=== PATIENT | male | born 1950 | race Caucasian/White ===

== ENCOUNTER 2016-05-18 04:03 | Emergency (ER) | payer OTHER ==
[2016-05-18] MEDS ORDERED: NS 1,000 ML IV ONE ×3 (04:07→06:46)
[2016-05-18] MEDS ORDERED: ONDANSETRON 4 MG/2 ML VIAL IVP ONE (04:07)
[2016-05-18] MEDS ORDERED: HYDROmorphONE/DILAUDID 1 MG/ML SYR ONE (04:09)
--- NOTE | 2016-05-18 04:14 | EDPHY ---
H & P Time Seen by Provider: 05/18/16 04:05 HPI/ROS: HPI The patient presents with severe left-sided upper quadrant abdominal pain which began about an hour prior to presentation. He awoke from sleep to use the bathroom and then had rapid onset of this sharp pain which has been constant ever since. He took OxyContin and Percocet at home without any improvement in his symptoms and thus comes into the emergency room. He has a longstanding history of pancreatitis thought to be related to pancreas divisum and has had prior pancreatic stents placed. Last was removed in February of 2016.. REVIEW OF SYSTEMS Constitutional: No fever, no chills. Eyes: No discharge. ENT: No sore throat. Cardiovascular: No chest pain, no palpitations. Respiratory: No cough, no shortness of breath. Gastrointestinal: See HPI Genitourinary: No hematuria. Musculoskeletal: No back pain. Skin: No rashes. Neurological: No headache. PMHx: Recurrent pancreatitis Soc Hx: Lives at home with his PHYSICAL General Appearance: Alert, no distress Eyes: Pupils equal and round no pallor or injection ENT, Mouth: Mucous membranes moist Respiratory: There are no retractions, lungs are clear to auscultation Cardiovascular: Regular rate and rhythm Gastrointestinal: Abdomen is soft with tenderness in the left upper quadrant Neurological: A&O, moves all extremities Skin: Warm and dry, no rashes Musculoskeletal: Neck is supple non tender Extremities: symmetrical, full range of motion Psychiatric: Patient is oriented X 3, there is no agitation Source: Patient Exam Limitations: No limitations - Personal History Tetanus Vaccine Date: 2010 - Medical/Surgical History Hx Asthma: Yes Hx Chronic Respiratory Disease: No Hx Diabetes: No Hx Cardiac Disease: No Hx Renal Disease: No Hx Cirrhosis: No Hx Alcoholism: No Hx HIV/AIDS: No Hx Splenectomy or Spleen Trauma: No Other PMH: pancreatits,L Shoulder surgery,Hernia repair,eye surgery, cholecystectomy - Social History Smoking Status: Never smoked Constitutional: Initial Vital Signs Temperature (C) 36.4 C 05/18/16 04:10 Heart Rate 51 L 05/18/16 04:10 Respiratory Rate 20 05/18/16 04:10 Blood Pressure 159/65 H 05/18/16 04:10 O2 Sat (%) 98 05/18/16 04:10 O2 Delivery Mode Nasal Cannula O2 (L/minute) 2 Allergies/Adverse Reactions: CATS Allergy (Mild, Uncoded 10/07/14 20:14) ASTHMA SX Home Medications: Medication Instructions Recorded Oxycodone HCl 05/18/16 Medical Decision Making Differential Diagnosis: This is a 66-year-old man with history of pancreas divisum with history of stents in place, no stent currently who presents from home with acute onset of severe left upper quadrant abdominal pain. Differential diagnosis includes pancreatitis, gastritis, colitis. In the emergency room, the patient was given Dilaudid 1 mg IV with complete resolution in his symptoms. He was also medicated with normal saline and Zofran. Labs were checked and revealed a markedly elevated lipase greater than 20,000. The patient was reassessed on several occasions and his abdominal exam was benign. He was offered admission to the hospital, however he would like to go home as he feels that his pain is better. He has had frequent pancreatitis and seems to know the course of his symptoms well, so I feel it is reasonable for him to go home. - Data Points Laboratory Results: Laboratory Results 05/18/16 04:55 05/18/16 04:55 05/18/16 05/18/16 04:55 04:55 WBC 11.73 10^3/uL H 10^3/uL (3.80-9.50) RBC 5.22 10^6/uL 10^6/uL (4.40-6.38) Hgb 16.4 g/dL g/dL (13.7-17.5) Hct 46.7 % % (40.0-51.0) MCV 89.5 fL fL (81.5-99.8) MCH 31.4 pg pg (27.9-34.1) MCHC 35.1 g/dL g/dL (32.4-36.7) RDW 12.6 % % (11.5-15.2) Plt Count 165 10^3/uL 10^3/uL (150-400) MPV 11.6 fL fL (8.7-11.7) Neut % (Auto) 53.8 % % (39.3-74.2) Lymph % (Auto) 33.8 % % (15.0-45.0) Camp % (Auto) 8.0 % % (4.5-13.0) Eos % (Auto) 3.6 % % (0.6-7.6) Baso % (Auto) 0.5 % % (0.3-1.7) Nucleat RBC Rel Count 0.0 % % (0.0-0.2) Absolute Neuts (auto) 6.31 10^3/uL 10^3/uL (1.70-6.50) Absolute Lymphs (auto) 3.96 10^3/uL H 10^3/uL (1.00-3.00) Absolute Monos (auto) 0.94 10^3/uL H 10^3/uL (0.30-0.80) Absolute Eos (auto) 0.42 10^3/uL H 10^3/uL (0.03-0.40) Absolute Basos (auto) 0.06 10^3/uL 10^3/uL (0.02-0.10) Absolute Nucleated RBC 0.00 10^3/uL 10^3/uL (0-0.01) Immature Gran % 0.3 % % (0.0-1.1) Immature Gran # 0.04 10^3/uL 10^3/uL (0.00-0.10) Sodium 139 mEq/L mEq/L (134-144) Potassium 4.1 mEq/L mEq/L (3.5-5.2) Chloride 105 mEq/L mEq/L (97-110) Carbon Dioxide 25 mEq/l mEq/l (22-31) Anion Gap 9 mEq/L mEq/L (8-16) BUN 20 mg/dL mg/dL (7-23) Creatinine 0.9 mg/dL mg/dL (0.7-1.3) Estimated GFR > 60 Glucose 151 mg/dL H mg/dL (70-100) Calcium 9.6 mg/dL mg/dL (8.5-10.4) Total Bilirubin 0.6 mg/dL mg/dL (0.1-1.4) Conjugated Bilirubin 0.4 mg/dL mg/dL (0.0-0.5) Unconjugated Bilirubin 0.2 mg/dL mg/dL (0.0-1.1) AST 29 IU/L IU/L (17-59) ALT 46 IU/L IU/L (21-72) Alkaline Phosphatase 85 IU/L IU/L (38-126) Total Protein 6.9 g/dL g/dL (6.3-8.2) Albumin 4.3 g/dL g/dL (3.5-5.0) Lipase > 28220.0 IU/L H IU/L (23-300) Medications Given: Discontinued Medications Hydromorphone HCl (Dilaudid) 1 mg IVP EDNOW ONE Stop: 05/18/16 04:16 Last Admin: 05/18/16 04:22 Dose: 1 mg Hydromorphone HCl (Dilaudid) 1 mg IVP EDNOW ONE Stop: 05/18/16 04:22 Last Admin: 05/18/16 04:22 Dose: Not Given Sodium Chloride (Ns) 1,000 mls @ 0 mls/hr IV ONCE ONE PRN Reason: Wide Open Stop: 05/18/16 04:08 Last Admin: 05/18/16 04:19 Dose: 1,000 mls Sodium Chloride (Ns) 1,000 mls @ 0 mls/hr IV ONCE ONE PRN Reason: Wide Open Stop: 05/18/16 06:06 Last Admin: 05/18/16 06:16 Dose: 1,000 mls Ondansetron HCl (Zofran) 4 mg IVP EDNOW ONE Stop: 05/18/16 04:08 Last Admin: 05/18/16 04:19 Dose: 4 mg Departure - Departure Disposition: Home, Routine, Self-Care Clinical Impression: Pancreatitis, acute Qualifiers: Pancreatitis type: other Acute pancreatitis complication: unspecified Qualified Code(s): K85.80 - Other acute pancreatitis without necrosis or infection Condition: Good Instructions: Pancreatitis (ED) Additional Instructions: Please maintain a clear diet until you are feeling better. Referrals: Kelsi Lauren MD [Primary Care Provider] - As per Instructions
[2016-05-18] MEDS ORDERED: HYDROmorphONE/DILAUDID 1 MG/ML SYR IVP ONE ×2 (04:15→04:21)
[2016-05-18 05:06] LABS: % IMMATURE GRANULYOCYTES 0.3 % (0.0-1.1); ABSOLUTE IMMATURE GRANULOCYTES 0.04 10^3/uL (0.00-0.10); ADD DIFF? NO; ADD MORPH? NO; ADD SCAN? NO; ATYPICAL LYMPHOCYTE FLAG 0 (0-99); FRAGMENT RBC FLAG 0 (0-99); HEMATOCRIT 46.7 % (40.0-51.0); HEMOGLOBIN 16.4 g/dL (13.7-17.5); LEFT SHIFT FLG 0 (0-99); LIPEMIA HEMOLYSIS FLAG 90 (0-99); MEAN CELL HEMOGLOBIN 31.4 pg (27.9-34.1); MEAN CELL HEMOGLOBIN CONCENTR. 35.1 g/dL (32.4-36.7); MEAN CELL VOLUME 89.5 fL (81.5-99.8); MEAN PLATELET VOLUME 11.6 fL (8.7-11.7); PLATELET CLUMPS FLAG 0 (0-99); PLATELET COUNT 165 10^3/uL (150-400); RED BLOOD CELL COUNT 5.22 10^6/uL (4.40-6.38); RED CELL DISTRIBUTION WIDTH 12.6 % (11.5-15.2)
[2016-05-18 05:19] LABS: ALANINE AMINOTRANSFERASE 46 IU/L (21-72); ALBUMIN 4.3 g/dL (3.5-5.0); ALKALINE PHOSPHATASE 85 IU/L (38-126); ANION GAP 9 mEq/L (8-16); ASPARTATE AMINOTRANSFERASE 29 IU/L (17-59); BILIRUBIN,TOTAL 0.6 mg/dL (0.1-1.4); BILIRUBIN-CONJUGATED 0.4 mg/dL (0.0-0.5); BILIRUBIN-UNCONJUGATED 0.2 mg/dL (0.0-1.1); CALCIUM 9.6 mg/dL (8.5-10.4); CARBON DIOXIDE 25 mEq/l (22-31); CHLORIDE 105 mEq/L (97-110); CREATININE 0.9 mg/dL (0.7-1.3); GLOMERULAR FILTRATION RATE > 60; GLUCOSE 151 mg/dL (70-100); POTASSIUM 4.1 mEq/L (3.5-5.2); SODIUM 139 mEq/L (134-144); TOTAL PROTEIN 6.9 g/dL (6.3-8.2)
[2016-05-18 05:24] VITALS: TEMP 97.9
[2016-05-18 08:06] VITALS: BP 107/58; PULSE 51; RESP 15; O2SAT 95
== END 2016-05-18 08:18 | disposition home or self-care (01) ==
DX: K85.80 Other acute pancreatitis without necrosis or infection (principal); J45.909 Unspecified asthma, uncomplicated; Z90.49 Acquired absence of other specified parts of digestive tract
CPT/HCPCS: 96374; J1170; J2405

== ENCOUNTER 2016-06-08 05:18 | Emergency (ER) | payer OTHER ==
[2016-06-08] MEDS ORDERED: NS 1,000 ML IV ONE ×3 (05:27→06:55)
--- NOTE | 2016-06-08 05:27 | EDPHY ---
H & P Stated Complaint: epigastric pain, similar to recent admission for pancreatitis HPI/ROS: HPI CHIEF COMPLAINT: Abdominal pain HISTORY OF PRESENT ILLNESS: This patient very pleasant 66-year-old male significant past medical history for chronic pancreatitis, pancreatic divisum, and did have a pancreatic stent however it is removed. He presents emergency room after he states that around 4:00 a.m. he started having some epigastric abdominal pain burning in nature consistent with his acute on chronic pancreatitis. He states that he came immediately to the emergency room as he tells me like to catch this soon. He tells me usually gets 1 mg IV Dilaudid and then a few bags of normal saline and then gets to go home. He has not had a fever has not been vomiting he has no chest pain or shortness of breath. The last time he was admitted was back in November. Currently describes his pain as 4/10 epigastric region. Past Medical History: Chronic pancreatitis, pancreatic divisum Past Surgical History: Pancreatic stents multiple Social History: denies daily use of drugs alcohol tobacco products Family History: noncontributory ROS REVIEW OF SYSTEMS: A comprehensive 10 point review of systems is otherwise negative aside from elements mentioned in the history of present illness. Exam Constitutional triage nursing summary reviewed, vital signs reviewed, awake/ alert. Eyes normal conjunctivae and sclera, EOMI, PERRLA. HENT normal inspection, atraumatic, moist mucus membranes, no epistaxis, neck supple/ no meningismus, no raccoon eyes. Respiratory clear to auscultation bilaterally, normal breath sounds, no respiratory distress, no wheezing. Cardiovascular rate normal, regular rhythm, no murmur, no edema, distal pulses normal. Gastrointestinal soft, mild tenderness palpation epigastric region, no rebound , no guarding, normal bowel sounds, no distension, no pulsatile mass. Genitourinary no CVA tenderness. Musculoskeletal no midline vertebral tenderness, full range of motion, no calf swelling, no tenderness of extremities, no meningismus, good pulses, neurovascularly intact. Skin pink, warm, & dry, no rash, skin atraumatic. Neurologic awake, alert and oriented x 3, AAOx3, moves all 4 extremities equally, motor intact, sensory intact, CN II-XII intact, normal cerebellar, normal vision, normal speech. Psychiatric normal mood/affect. Heme/Lymph/Immune no lymphadenopathy. Differential diagnosis includes but is not limited to and in no particular order : acute pancreatitis acute on chronic pancreatitis Bowel obstruction, appendicitis, gallbladder disease, diverticulitis, colitis, enteritis, perforated viscus, gastritis, GERD, esophagitis, urinary tract infection, pyelonephritis, kidney stones Medical Decision Making: The patient had an IV established obtain blood work, including lipase, will be hydrated aggressively with 2 L normal saline bolus, and he will also be given 4 mg IV Zofran and 1 mg IV Dilaudid will re-evaluate. Re-evaluation: 0656: re-evaluation at this time patient is resting comfortably no acute distress. Abdomen is soft. He is not vomiting. He has received 3 L of fluid here in the emergency room 1 mg Dilaudid. I did explain to him that his lipase is most likely over 20,000. And that he may want to be admitted however he has declined admission he wants to go home he tells me that his lungs had 3-4 L of IV fluids 1 mg Dilaudid he is not vomiting he is comfortable going home. He went home before with lipase over 20,000. He does understand he is 1 welcome to return any time if he has worsening abdominal pain, vomiting or does not feel well. Source: Patient - Personal History Current Tetanus/Diphtheria Vaccine: Yes Current Tetanus Diphtheria and Acellular Pertussis (TDAP): Yes Tetanus Vaccine Date: 2010 - Medical/Surgical History Hx Asthma: Yes Hx Chronic Respiratory Disease: No Hx Diabetes: No Hx Cardiac Disease: No Hx Renal Disease: No Hx Cirrhosis: No Hx Alcoholism: No Hx HIV/AIDS: No Hx Splenectomy or Spleen Trauma: No Other PMH: pancreatitis, L Shoulder surgery, Hernia repair, eye surgery, cholecystectomy - Social History Smoking Status: Never smoked Constitutional: Initial Vital Signs Temperature (C) 36.8 C 06/08/16 05:21 Heart Rate 53 L 06/08/16 05:21 Respiratory Rate 18 06/08/16 05:21 Blood Pressure 157/100 H 06/08/16 05:21 O2 Sat (%) 98 06/08/16 05:21 O2 Delivery Mode Room Air Allergies/Adverse Reactions: CATS Allergy (Mild, Uncoded 10/07/14 20:14) ASTHMA SX Home Medications: Medication Instructions Recorded Oxycodone HCl 5 mg PO BID #20 tablet 06/08/16 Medical Decision Making - Data Points Laboratory Results: Laboratory Results 06/08/16 05:35 06/08/16 05:35 06/08/16 06/08/16 06/08/16 05:35 05:35 05:35 WBC 7.73 10^3/uL 10^3/uL (3.80-9.50) RBC 5.70 10^6/uL 10^6/uL (4.40-6.38) Hgb 17.9 g/dL H g/dL (13.7-17.5) Hct 50.5 % % (40.0-51.0) MCV 88.6 fL fL (81.5-99.8) MCH 31.4 pg pg (27.9-34.1) MCHC 35.4 g/dL g/dL (32.4-36.7) RDW 12.6 % % (11.5-15.2) Plt Count 157 10^3/uL 10^3/uL (150-400) MPV 11.5 fL fL (8.7-11.7) Neut % (Auto) 61.2 % % (39.3-74.2) Lymph % (Auto) 26.1 % % (15.0-45.0) Burt % (Auto) 7.0 % % (4.5-13.0) Eos % (Auto) 4.9 % % (0.6-7.6) Baso % (Auto) 0.5 % % (0.3-1.7) Nucleat RBC Rel Count 0.0 % % (0.0-0.2) Absolute Neuts (auto) 4.73 10^3/uL 10^3/uL (1.70-6.50) Absolute Lymphs (auto) 2.02 10^3/uL 10^3/uL (1.00-3.00) Absolute Monos (auto) 0.54 10^3/uL 10^3/uL (0.30-0.80) Absolute Eos (auto) 0.38 10^3/uL 10^3/uL (0.03-0.40) Absolute Basos (auto) 0.04 10^3/uL 10^3/uL (0.02-0.10) Absolute Nucleated RBC 0.00 10^3/uL 10^3/uL (0-0.01) Immature Gran % 0.3 % % (0.0-1.1) Immature Gran # 0.02 10^3/uL 10^3/uL (0.00-0.10) PT 12.9 SEC SEC (12.0-15.0) INR 0.98 (0.83-1.16) APTT 28.1 SEC SEC (23.0-38.0) VBG Lactic Acid Sodium 143 mEq/L mEq/L (134-144) Potassium 4.7 mEq/L mEq/L (3.5-5.2) Chloride 106 mEq/L mEq/L (97-110) Carbon Dioxide 26 mEq/l mEq/l (22-31) Anion Gap 11 mEq/L mEq/L (8-16) BUN 18 mg/dL mg/dL (7-23) Creatinine 0.9 mg/dL mg/dL (0.7-1.3) Estimated GFR > 60 Glucose 111 mg/dL H mg/dL (70-100) Calcium 9.9 mg/dL mg/dL (8.5-10.4) Total Bilirubin 0.8 mg/dL mg/dL (0.1-1.4) Conjugated Bilirubin 0.4 mg/dL mg/dL (0.0-0.5) Unconjugated Bilirubin 0.4 mg/dL mg/dL (0.0-1.1) AST 32 IU/L IU/L (17-59) ALT 43 IU/L IU/L (21-72) Alkaline Phosphatase 97 IU/L IU/L (38-126) Total Protein 7.6 g/dL g/dL (6.3-8.2) Albumin 4.9 g/dL g/dL (3.5-5.0) Lipase Pending 06/08/16 05:35 WBC RBC Hgb Hct MCV MCH MCHC RDW Plt Count MPV Neut % (Auto) Lymph % (Auto) Burt % (Auto) Eos % (Auto) Baso % (Auto) Nucleat RBC Rel Count Absolute Neuts (auto) Absolute Lymphs (auto) Absolute Monos (auto) Absolute Eos (auto) Absolute Basos (auto) Absolute Nucleated RBC Immature Gran % Immature Gran # PT INR APTT VBG Lactic Acid 1.1 mmol/L mmol/L (0.7-2.1) Sodium Potassium Chloride Carbon Dioxide Anion Gap BUN Creatinine Estimated GFR Glucose Calcium Total Bilirubin Conjugated Bilirubin Unconjugated Bilirubin AST ALT Alkaline Phosphatase Total Protein Albumin Lipase Medications Given: Discontinued Medications Hydromorphone HCl (Dilaudid) 1 mg IVP EDNOW ONE Stop: 06/08/16 05:31 Last Admin: 06/08/16 06:06 Dose: 1 mg Sodium Chloride (Ns) 1,000 mls @ 0 mls/hr IV ONCE ONE PRN Reason: Wide Open Stop: 06/08/16 05:28 Last Admin: 06/08/16 05:40 Dose: 1,000 mls Sodium Chloride (Ns) 1,000 mls @ 0 mls/hr IV ONCE ONE PRN Reason: Wide Open Stop: 06/08/16 05:38 Last Admin: 06/08/16 05:44 Dose: 1,000 mls Departure - Departure Disposition: Home, Routine, Self-Care Clinical Impression: Abdominal pain Qualifiers: Abdominal location: epigastric Qualified Code(s): R10.13 - Epigastric pain Pancreatitis Qualifiers: Chronicity: acute Pancreatitis type: other Acute pancreatitis complication: unspecified Qualified Code(s): K85.80 - Other acute pancreatitis without necrosis or infection Condition: Good Instructions: Pancreatitis (ED), Acute Abdominal Pain (ED) Additional Instructions: 1. if you feel worse please return to the emergency room specifically if you have worsening abdominal pain fever vomiting. Referrals: Kelsi Lauren MD [Primary Care Provider] - As per Instructions Prescriptions: Oxycodone HCl 5 mg PO BID #20 tablet
[2016-06-08] MEDS ORDERED: ONDANSETRON 4 MG/2 ML VIAL IVP ONE (05:30)
[2016-06-08] MEDS ORDERED: HYDROmorphONE/DILAUDID 1 MG/ML SYR IVP ONE (05:30)
[2016-06-08 05:57] LABS: % IMMATURE GRANULYOCYTES 0.3 % (0.0-1.1); ABSOLUTE IMMATURE GRANULOCYTES 0.02 10^3/uL (0.00-0.10); ADD DIFF? NO; ADD MORPH? NO; ADD SCAN? NO; ATYPICAL LYMPHOCYTE FLAG 0 (0-99); FRAGMENT RBC FLAG 0 (0-99); HEMATOCRIT 50.5 % (40.0-51.0); HEMOGLOBIN 17.9 g/dL (13.7-17.5); LEFT SHIFT FLG 0 (0-99); LIPEMIA HEMOLYSIS FLAG 90 (0-99); MEAN CELL HEMOGLOBIN 31.4 pg (27.9-34.1); MEAN CELL HEMOGLOBIN CONCENTR. 35.4 g/dL (32.4-36.7); MEAN CELL VOLUME 88.6 fL (81.5-99.8); MEAN PLATELET VOLUME 11.5 fL (8.7-11.7); PLATELET CLUMPS FLAG 10 (0-99); PLATELET COUNT 157 10^3/uL (150-400); RED CELL DISTRIBUTION WIDTH 12.6 % (11.5-15.2)
[2016-06-08 06:03] LABS: INR 0.98 (0.83-1.16); PROTIME(PATIENT) 12.9 SEC (12.0-15.0)
[2016-06-08 06:04] LABS: APTT 28.1 SEC (23.0-38.0)
[2016-06-08 06:05] LABS: ALANINE AMINOTRANSFERASE 43 IU/L (21-72); ALBUMIN 4.9 g/dL (3.5-5.0); ALKALINE PHOSPHATASE 97 IU/L (38-126); ANION GAP 11 mEq/L (8-16); ASPARTATE AMINOTRANSFERASE 32 IU/L (17-59); BILIRUBIN,TOTAL 0.8 mg/dL (0.1-1.4); BILIRUBIN-CONJUGATED 0.4 mg/dL (0.0-0.5); BILIRUBIN-UNCONJUGATED 0.4 mg/dL (0.0-1.1); CALCIUM 9.9 mg/dL (8.5-10.4); CARBON DIOXIDE 26 mEq/l (22-31); CHLORIDE 106 mEq/L (97-110); CREATININE 0.9 mg/dL (0.7-1.3); GLOMERULAR FILTRATION RATE > 60; GLUCOSE 111 mg/dL (70-100); POTASSIUM 4.7 mEq/L (3.5-5.2); SODIUM 143 mEq/L (134-144); TOTAL PROTEIN 7.6 g/dL (6.3-8.2)
[2016-06-08 08:18] VITALS: BP 128/80; PULSE 78; RESP 18; TEMP 98.4; O2SAT 98
== END 2016-06-08 08:14 | disposition home or self-care (01) ==
DX: K85.80 Other acute pancreatitis without necrosis or infection (principal); J45.909 Unspecified asthma, uncomplicated; Z90.49 Acquired absence of other specified parts of digestive tract
CPT/HCPCS: 96374; J1170; J2405

== ENCOUNTER 2016-12-21 12:52 | Emergency (ER) | payer OTHER ==
[2016-12-21 13:07] VITALS: RESP 16; TEMP 97.7
--- NOTE | 2016-12-21 14:04 | CPEKG ---
Heart Rate: 42 RR Interval: 1429 P-R Interval: 236 QRSD Interval: 108 QT Interval: 464 QTC Interval: 388 P Greer: 70 QRS Greer: 43 T Wave Greer: 39 EKG Severity - ABNORMAL ECG - EKG Impression: SINUS BRADYCARDIA EKG Impression: FIRST DEGREE AV BLOCK EKG Impression: INCOMPLETE RIGHT BUNDLE BRANCH BLOCK EKG Impression: PROBABLE LEFT VENTRICULAR HYPERTROPHY EKG Impression: ANTERIOR ST ELEVATION, PROBABLY DUE TO LVH Electronically Signed By: Cristobal Hector 21-Dec-2016 15:09:33
--- NOTE | 2016-12-21 14:46 | EDPHY ---
H & P Time Seen by Provider: 12/21/16 14:29 HPI/ROS: Chief complaint. Ankle swelling, shortness of breath HPI. 66-year-old presents to the emergency department with complaint of 4 days of facial swelling, swollen hands and feet. He just returned last night from a bike trip to [place]. He had no symptoms during 700 mild also biking [place] but on the last day of the trip in [place] E developed the above symptoms. The swelling seems to be slowly going down though still not normal in both ankles in particular still swollen. They feel tight. He was slightly ill over the trip having a sore throat but no fever. He has had slight shortness of breath since last night though he has had this before when he returns home from a trip. He does have slight tightness in his chest that seems to be worse with deep breathing but not with exertion. No similar issues previously other than the slight shortness of breath. No history heart or lung problems other than pneumonia child and heart murmur as a child. ROS Constitutional. no fever/chills, no weakness Eyes. no problems with vision ENT. Slight sore throat Cardiovascular. Tightness in chest Respiratory. Shortness of breath but no cough Abdominal. no abdominal pain, no nausea/vomiting, no diarrhea . no problems urinating MS. swelling to hands and feet as well as face Skin. no rash Lymph. no swollen glands Neuro. no headache, no dizziness, no difficulty walking or with speech Past Medical/Surgical History: Pancreatitis with cholecystectomy and stent. Stent was placed in September 2016. Shoulder surgery, hernia repair, eye surgery. Social History: Single, nonsmoker, alcohol Smoking Status: Never smoked Physical Exam: General Appearance: Alert well-developed male mild distress vital signs significant for initial blood pressure 199/93 Eyes: Pupils equal and round no pallor or injection. ENT, Mouth: Mucous membranes are moist. Respiratory: There are no retractions, lungs are clear to auscultation. Cardiovascular: Regular rate and rhythm. Gastrointestinal: Abdomen is soft and nontender, no masses, bowel sounds normal. Neurological: Awake and alert, sensory and motor exams grossly normal. Skin: Warm and dry, no rashes. Musculoskeletal: Neck is supple nontender. Extremities 2+ edema to both ankles to the mid calf Psychiatric: Patient is oriented X 3, there is no agitation. Constitutional: Initial Vital Signs Temperature (C) 36.5 C 12/21/16 13:03 Heart Rate 49 L 12/21/16 13:03 Respiratory Rate 16 12/21/16 13:03 Blood Pressure 199/93 H 12/21/16 13:03 O2 Sat (%) 96 12/21/16 13:03 O2 Delivery Mode Room Air Allergies/Adverse Reactions: CATS Allergy (Mild, Uncoded 10/07/14 20:14) ASTHMA SX Home Medications: Medication Instructions Recorded NK [No Known Home Meds] 12/21/16 Medical Decision Making - Diagnostics EKG Interpretation: EKG interpreted by me shows sinus bradycardia. There is first-degree AV block. Incomplete right bundle branch block. LVH by voltage criteria. Slight ST elevation anteriorly likely due to LVH. No arrhythmia. The rate is 42 No previous EKG in our system for comparison Imaging Results: Imaging Impressions Chest X-Ray 12/21/16 14:47 Impression: 1. Clear lungs. No pneumonia. 2. Trace bilateral pleural effusions versus pleural parenchymal scarring. Extremity Venous Study 12/21/16 15:08 IMPRESSION: Normal bilateral lower extremity duplex venous Doppler. Findings and recommendations discussed with MIRZA HECTOR at 1601 hour, 2016. Final report concurs with initial preliminary interpretation. Chest/Thorax CTA 12/21/16 16:11 Impression: 1. No pulmonary embolism. 2. No pneumonia. Findings and recommendations discussed with Mirza Hector M.D., at 1702 hours , on December 21, 2016. Final report concurs with initial preliminary interpretation. E:amm Chest x-ray interpreted by me shows no evidence of pneumonia or CHF. There is trace bilateral pleural effusions. Bilateral Doppler ultrasound of the extremities is normal without evidence of DVT this is reviewed by me and discussed with Dr. Ramirez Procedures: IV normal saline, monitor ED Course/Re-evaluation: Re-evaluation 5:20 p.m.. Patient feels well. He tells me he feels so well that if he had not had concerned about swelling from the other day he would gone out for a bike ride today. The patient and I discussed imaging lab results. We discussed treatment plan including criteria for return importance of follow-up further evaluation. He expresses understanding and agreement the patient has a follow-up appointment at and she has tomorrow and we will give him copies of his labs and EKG to take with him to his appointment for evaluation of his pancreas and gallbladder tomorrow. Differential Diagnosis: I considered DVT, PE, acute coronary syndrome, congestive heart failure, allergic reaction from the other day causing swelling. There is no evidence for acute findings today - Data Points Laboratory Results: Laboratory Results 12/21/16 14:00 12/21/16 14:00 12/21/16 12/21/16 12/21/16 14:00 14:00 14:00 WBC 4.33 10^3/uL 10^3/uL (3.80-9.50) RBC 4.76 10^6/uL 10^6/uL (4.40-6.38) Hgb 14.4 g/dL g/dL (13.7-17.5) Hct 42.0 % % (40.0-51.0) MCV 88.2 fL fL (81.5-99.8) MCH 30.3 pg pg (27.9-34.1) MCHC 34.3 g/dL g/dL (32.4-36.7) RDW 12.9 % % (11.5-15.2) Plt Count 150 10^3/uL 10^3/uL (150-400) MPV 11.5 fL fL (8.7-11.7) Neut % (Auto) 51.2 % % (39.3-74.2) Lymph % (Auto) 34.9 % % (15.0-45.0) Rankin % (Auto) 9.5 % % (4.5-13.0) Eos % (Auto) 3.5 % % (0.6-7.6) Baso % (Auto) 0.7 % % (0.3-1.7) Nucleat RBC Rel Count 0.0 % % (0.0-0.2) Absolute Neuts (auto) 2.22 10^3/uL 10^3/uL (1.70-6.50) Absolute Lymphs (auto) 1.51 10^3/uL 10^3/uL (1.00-3.00) Absolute Monos (auto) 0.41 10^3/uL 10^3/uL (0.30-0.80) Absolute Eos (auto) 0.15 10^3/uL 10^3/uL (0.03-0.40) Absolute Basos (auto) 0.03 10^3/uL 10^3/uL (0.02-0.10) Absolute Nucleated RBC 0.00 10^3/uL 10^3/uL (0-0.01) Immature Gran % 0.2 % % (0.0-1.1) Immature Gran # 0.01 10^3/uL 10^3/uL (0.00-0.10) PT 13.8 SEC SEC (12.0-15.0) INR 1.07 (0.83-1.16) D-Dimer 0.58 ug/mLFEU H ug/mLFEU (0.00-0.50) Sodium 140 mEq/L mEq/L (134-144) Potassium 3.1 mEq/L L mEq/L (3.5-5.2) Chloride 101 mEq/L mEq/L (97-110) Carbon Dioxide 31 mEq/l mEq/l (22-31) Anion Gap 8 mEq/L mEq/L (8-16) BUN 13 mg/dL mg/dL (7-23) Creatinine 0.8 mg/dL mg/dL (0.7-1.3) Estimated GFR > 60 Glucose 73 mg/dL mg/dL (70-100) Calcium 9.2 mg/dL mg/dL (8.5-10.4) Total Bilirubin 0.6 mg/dL mg/dL (0.1-1.4) Conjugated Bilirubin 0.2 mg/dL mg/dL (0.0-0.5) Unconjugated Bilirubin 0.4 mg/dL mg/dL (0.0-1.1) AST 34 IU/L IU/L (17-59) ALT 70 IU/L IU/L (21-72) Alkaline Phosphatase 50 IU/L IU/L (38-126) Troponin I < 0.012 ng/mL ng/mL (0.000-0.034) NT-Pro-B Natriuret Pep 304 pg/mL H pg/mL (0-125) Total Protein 6.5 g/dL g/dL (6.3-8.2) Albumin 3.8 g/dL g/dL (3.5-5.0) Lipase 165 IU/L IU/L (23-300) Medications Given: Discontinued Medications Magnesium Sulfate/Dextrose (Magnesium Sulf 1 Gm (Premix)) 100 mls @ 100 mls/hr IV EDNOW ONE Stop: 12/21/16 16:18 Last Admin: 12/21/16 16:10 Dose: 100 mls Potassium Chloride (Klor-Con) 40 meq PO ONCE ONE Stop: 12/21/16 15:20 Last Admin: 12/21/16 16:09 Dose: 40 meq Departure - Departure Disposition: Home, Routine, Self-Care Clinical Impression: Edema Qualifiers: Edema type: generalized Qualified Code(s): R60.1 - Generalized edema Condition: Good Instructions: Edema (ED) Additional Instructions: Easy activity the next 1-2 days. Return for worsening symptoms including chest discomfort or trouble breathing. Keep her follow-up appointments tomorrow and on Wednesday. Referrals: Kelsi Lauren MD [Primary Care Provider] - 1 day, if not improved
[2016-12-21 14:55] LABS: % IMMATURE GRANULYOCYTES 0.2 % (0.0-1.1); ABSOLUTE IMMATURE GRANULOCYTES 0.01 10^3/uL (0.00-0.10); ADD DIFF? NO; ADD MORPH? NO; ADD SCAN? NO; ATYPICAL LYMPHOCYTE FLAG 10 (0-99); FRAGMENT RBC FLAG 0 (0-99); HEMOGLOBIN 14.4 g/dL (13.7-17.5); LEFT SHIFT FLG 0 (0-99); LIPEMIA HEMOLYSIS FLAG 90 (0-99); MEAN CELL HEMOGLOBIN 30.3 pg (27.9-34.1); MEAN CELL HEMOGLOBIN CONCENTR. 34.3 g/dL (32.4-36.7); MEAN CELL VOLUME 88.2 fL (81.5-99.8); MEAN PLATELET VOLUME 11.5 fL (8.7-11.7); PLATELET CLUMPS FLAG 10 (0-99); PLATELET COUNT 150 10^3/uL (150-400); RED BLOOD CELL COUNT 4.76 10^6/uL (4.40-6.38); RED CELL DISTRIBUTION WIDTH 12.9 % (11.5-15.2)
[2016-12-21 15:00] LABS: ALANINE AMINOTRANSFERASE 70 IU/L (21-72); ALBUMIN 3.8 g/dL (3.5-5.0); ALKALINE PHOSPHATASE 50 IU/L (38-126); ANION GAP 8 mEq/L (8-16); ASPARTATE AMINOTRANSFERASE 34 IU/L (17-59); BILIRUBIN,TOTAL 0.6 mg/dL (0.1-1.4); BILIRUBIN-CONJUGATED 0.2 mg/dL (0.0-0.5); BILIRUBIN-UNCONJUGATED 0.4 mg/dL (0.0-1.1); CALCIUM 9.2 mg/dL (8.5-10.4); CARBON DIOXIDE 31 mEq/l (22-31); CHLORIDE 101 mEq/L (97-110); CREATININE 0.8 mg/dL (0.7-1.3); GLOMERULAR FILTRATION RATE > 60; GLUCOSE 73 mg/dL (70-100); POTASSIUM 3.1 mEq/L (3.5-5.2); SODIUM 140 mEq/L (134-144); TOTAL PROTEIN 6.5 g/dL (6.3-8.2)
[2016-12-21 15:11] LABS: TROPONIN I < 0.012 ng/mL (0.000-0.034)
[2016-12-21] MEDS ORDERED: MAGNESIUM SULF 1 GM/DEXTROSE 100 ML IV ONE (15:19)
[2016-12-21] MEDS ORDERED: POTASSIUM CL 20 MEQ TAB PO ONE (15:19)
[2016-12-21 15:28] LABS: INR 1.07 (0.83-1.16); PROTIME(PATIENT) 13.8 SEC (12.0-15.0)
[2016-12-21 16:23] VITALS: BP 170/92; PULSE 65; O2SAT 94
[2016-12-21] MEDS ORDERED: IOPAMIDOL (ISOVUE 370) 100 ML BTL IV ONE (16:26)
== END 2016-12-21 17:39 | disposition home or self-care (01) ==
DX: R60.1 Generalized edema (principal)
CPT/HCPCS: 96374; J3475; Q9967

== ENCOUNTER → 2016-12-31 | Outpatient (CLI) | payer OTHER | LOC: BMCIMAGING 08:12 | PROVIDERS: ATTEND Family Medicine | DX: R16.0 Hepatomegaly, not elsewhere classified (principal); K76.0 Fatty (change of) liver, not elsewhere classified; N28.1 Cyst of kidney, acquired; I70.0 Atherosclerosis of aorta; Z90.49 Acquired absence of other specified parts of digestive tract; Z96.89 Presence of other specified functional implants ==

== ENCOUNTER → 2017-03-02 | Outpatient (CLI) | payer OTHER ==
[~2017-03-02] MED LIST: GADOBUTROL 10 ML VIAL IVP ONE
== END ==
LOC: FIMAGING 18:30
PROVIDERS: ATTEND Internal Medicine Gastroenterology
DX: R93.2 Abnormal findings on diagnostic imaging of liver and biliary tract (principal)
CPT/HCPCS: 74183; A9585

== ENCOUNTER 2018-03-04 15:19 | Observation (INO) | payer OTHER ==
--- NOTE | 2018-03-04 15:23 | EDPHY ---
HPI/HX/ROS/PE/MDM Narrative: CHIEF COMPLAINT: Abnormal EKG HPI: The patient is a 68 y/o male with a history of a pancreatic stent placement ( today), recurrent pancreatitis, and a cholecystectomy complaining of an abnormal EKG today. He had an his annual physical with his PCP today after the stent placement in [place]. During the visit today he mentioned a several month history of right-sided chest pain and shortness of breath episodes. His PCP then ordered an EKG which was abnormal, so he sent him to this emergency department. Currently the patient is unsure if he is having chest pain or if the pain is due to his pancreatitis. No fever, headache, abdominal pain, urinary or bowel complaints, numbness, paresthesias. The chest pain and shortness of breath has been intermittent and occurs primarily while working out and sometimes while sitting on the couch. He initially develops an abnormal sensation in the right side of his chest followed by a "constricted breath". For the the shortness of breath, he takes Albuterol which doesn't alleviate his symptoms. He then develops a "mind haze" and "tunnel vision". These episodes last for around 10-15 minutes. His last cardiac stress test was 20 years ago and he has seen a continuous pillowcase cutter at [facility]. The patient was told that he has a calcified LAD per an old CT. REVIEW OF SYSTEMS: Aside from elements discussed in the HPI, a comprehensive 10 system review of systems is otherwise negative. PMH: Pancreatitis (due to "genetic kink"), pancreatic stent, cholecystectomy, left shoulder surgery, hernia repair, eye surgery SOCIAL HISTORY: Lives in [place], at bedside, retired PHYSICAL EXAM: General: Patient is alert, in no acute distress. ENT: Eyes are normal to inspection. ENT inspection normal. Neck: Normal inspection. Full range of motion. Respiratory: No respiratory distress. Breath sounds normal bilaterally. Cardiovascular: Regular rate and rhythm. Strong peripheral pulses. Normal cap refill. Abdomen: The abdomen is nontender to palpation. There are no peritoneal signs. There are normal bowel sounds. Back: Normal to inspection. No tenderness to palpation. Skin: Normal color. No rash. Warm and dry. Extremities: Normal appearance. Full range of motion. Neuro: Oriented x3. Normal motor function. Normal sensory function. ED Course: 1536: EKG was ordered and interpreted by myself. Please see [facility] system for official reading. I reviewed patient's old EKG from November which is similar to the EKG today. 1612: Patient has a negative POC troponin and a negative chest x-ray. 1636: I spoke with the PA from [facility] regarding this patient; this patient will need to be admitted for further evaluation and observation. 1644: I consulted with the hospitalist service, Dr. Snow accepts admission of this patient. 1700: Reassessed patient and discussed plan for admission which he is comfortable with it. MDM: This patient presents with episodic chest pain with exertion, concerning for flow-limiting CAD/angina. I think PE is much less likely, and as patient underwent a surgical procedure earlier today, I do not think a d-dimer would be an accurate test. He will be admitted to medicine for cardiology evaluation and troponin rule out. - Data Points Imaging Results: Imaging Impressions Chest X-Ray 03/04/18 15:25 Impression: Normal. Imaging: I viewed and interpreted images myself Laboratory Results: Laboratory Results 03/04/18 15:44 03/04/18 15:44 03/04/18 03/04/18 03/04/18 15:52 15:44 15:44 WBC 7.19 10^3/uL 10^3/uL (3.80-9.50) RBC 4.97 10^6/uL 10^6/uL (4.40-6.38) Hgb 15.4 g/dL g/dL (13.7-17.5) Hct 43.6 % % (40.0-51.0) MCV 87.7 fL fL (81.5-99.8) MCH 31.0 pg pg (27.9-34.1) MCHC 35.3 g/dL g/dL (32.4-36.7) RDW 12.7 % % (11.5-15.2) Plt Count 142 10^3/uL L 10^3/uL (150-400) MPV 11.2 fL fL (8.7-11.7) Neut % (Auto) 88.3 % H % (39.3-74.2) Lymph % (Auto) 9.6 % L % (15.0-45.0) [place] % (Auto) 1.5 % L % (4.5-13.0) Eos % (Auto) 0.0 % L % (0.6-7.6) Baso % (Auto) 0.3 % % (0.3-1.7) Nucleat RBC Rel Count 0.0 % % (0.0-0.2) Absolute Neuts (auto) 6.35 10^3/uL 10^3/uL (1.70-6.50) Absolute Lymphs (auto) 0.69 10^3/uL L 10^3/uL (1.00-3.00) Absolute Monos (auto) 0.11 10^3/uL L 10^3/uL (0.30-0.80) Absolute Eos (auto) 0.00 10^3/uL L 10^3/uL (0.03-0.40) Absolute Basos (auto) 0.02 10^3/uL 10^3/uL (0.02-0.10) Absolute Nucleated RBC 0.00 10^3/uL 10^3/uL (0-0.01) Immature Gran % 0.3 % % (0.0-1.1) Immature Gran # 0.02 10^3/uL 10^3/uL (0.00-0.10) Sodium 141 mEq/L mEq/L (135-145) Potassium 4.5 mEq/L mEq/L (3.5-5.2) Chloride 105 mEq/L mEq/L (97-110) Carbon Dioxide 29 mEq/l mEq/l (22-31) Anion Gap 7 mEq/L mEq/L (6-14) BUN 15 mg/dL mg/dL (7-23) Creatinine 0.9 mg/dL mg/dL (0.7-1.3) Estimated GFR > 60 Glucose 124 mg/dL H mg/dL (70-100) Calcium 9.3 mg/dL mg/dL (8.5-10.4) Total Bilirubin 0.6 mg/dL mg/dL (0.1-1.4) Conjugated Bilirubin 0.2 mg/dL mg/dL (0.0-0.5) Unconjugated Bilirubin 0.4 mg/dL mg/dL (0.0-1.1) AST 28 IU/L IU/L (17-59) ALT 34 IU/L IU/L (21-72) Alkaline Phosphatase 48 IU/L IU/L (38-126) POC Troponin I 0.00 ng/mL ng/mL (0.00-0.08) Total Protein 6.9 g/dL g/dL (6.3-8.2) Albumin 4.5 g/dL g/dL (3.5-5.0) Lipase 79 IU/L IU/L (23-300) Point of Care Test Results: Chemistry 03/04/18 15:52 POC Troponin I 0.00 ng/mL ng/mL (0.00-0.08) General Time Seen by Provider: 03/04/18 15:21 Initial Vital Signs: Initial Vital Signs Temperature (C) 36.3 C 03/04/18 15:25 Heart Rate 67 03/04/18 15:25 Respiratory Rate 18 03/04/18 15:25 Blood Pressure 159/100 H 03/04/18 15:25 O2 Sat (%) 97 03/04/18 15:25 O2 Delivery Mode Room Air Allergies/Adverse Reactions: CATS Allergy (Mild, Uncoded 03/04/18 15:24) ASTHMA SX Home Medications: Medication Instructions Recorded Albuterol [Proventil Inhaler HFA 2 puffs IH BID PRN 03/04/18 (*)] Ascorbic Acid [Vitamin C 250 mg 250 mg PO DAILY 03/04/18 (*)] Cholecalciferol Vit D3 [Vitamin D3 1,000 units PO DAILY 03/04/18 (*)] Glucosamine Sulfate [Glucosamine 500 mg PO DAILY 03/04/18 Sulfate 500 MG (*)] Herbals/Supplements -Info Only 1 ea PO DAILY 03/04/18 Departure - Departure Disposition: [facility] Inpatient Acute Clinical Impression: Shortness of breath Chest pain Qualifiers: Chest pain type: other chest pain Qualified Code(s): R07.89 - Other chest pain Condition: Fair Report Scribed for: Prince Gomez Report Scribed by: Mi Torres Date of Report: 03/04/18 Time of Report: 15:24 Physician Review and Approval Statement: Portions of this note were transcribed by an ED scribe. I personally performed the history, physical exam, and medical decision making; and confirm the accuracy of the information in the transcribed note.
[2018-03-04 16:06] LABS: PLATELET COUNT 142 10^3/uL (150-400)
--- NOTE | 2018-03-04 18:19 | PDGENHP ---
History and Physical - Chief Complaint Right sided chest pain - History of Present Illness 68 y/o male presents after receiving a pancreatic stent in [place] today and visiting his PCP; performing an EKG that was abnormal. The pt reports these symptoms began years ago but have become more frequent and noticeable within the last year. It initially starts as the inability to catch his breath and after breathing deeply 20 times, he notices the right side chest pain. The pain does not radiate. He acknowledges he doesn't pay much attention to what is going on when he experiences the sensation that he can't breath because he is focused on "not dying." Apparently, 20 years ago after testing, he was told he was in the "high bracket" of cardiac calcium calcification. Nothing alleviates the chest pain and nothing aggravates it. The onset is random. He is an avid cyclist, normally going 30-100 miles rides but has noticed a decrease in distance d/t his breathing and activity intolerance. He denies current chest pain or SOB. Past Medical/Surgical History 1. Pancreatic stent placement (today) 2. Pancreatitis 3. Cholecystectomy 4. L shoulder surgery 5. Hernia Repair Social 1. Denies tobacco or illicit drug use. Has been sober for 5 years. Would like to try CBD. 2. Avid cyclist 3. Lives in [place] with his 4. Retired - worked in construction/computer programming Vital Signs 177/103 77 HR 17 Respirations 36.2c 94% RA History Information - Allergies/Home Medication List Allergies/Adverse Reactions: CATS Allergy (Mild, Uncoded 03/04/18 15:24) ASTHMA SX Home Medications: Albuterol [Proventil Inhaler HFA (*)] 2 puffs IH BID PRN 03/04/18 [Last Taken ] Ascorbic Acid [Vitamin C 250 mg (*)] 250 mg PO DAILY 03/04/18 [Last Taken Unknown] Cholecalciferol Vit D3 [Vitamin D3 (*)] 1,000 units PO DAILY 03/04/18 [Last Taken Unknown] Glucosamine Sulfate [Glucosamine Sulfate 500 MG (*)] 500 mg PO DAILY 03/04/18 [ Last Taken Unknown] Herbals/Supplements -Info Only 1 ea PO DAILY 03/04/18 [Last Taken Unknown] I have personally reviewed and updated: family history, medical history, social history, surgical history Past Medical History: See HPI List - Surgical History Additional surgical history: See HPI List - Family History Positive for: CAD, hypertension Additional family history: Mother and father with CAD. Brother heart disease - thinks he had a triple bypass - Social History Smoking Status: Never smoked Alcohol Use: Sober Drug Use: None Review of Systems Review of Systems: ROS: 10pt was reviewed & negative except for what was stated in HPI & below Constitutional: Reports: no symptoms EENMT: Reports: no symptoms Cardiac: Reports: chest pain, lightheadedness Respiratory: Reports: shortness of breath Gastrointestinal: Reports: no symptoms Genitourinary: Reports: no symptoms Muscolosketal: Reports: no symptoms Skin: Reports: no symptoms Neurological: Reports: headache Hematologic/Lymphatic: Reports: no symptoms Immunologic/Allergy: Reports: other (See allergy list) Physical Exam Physical Exam: Lab data and imaging reviewed EKG: SR with 1st degree conduction block Trop: 0.00 Temp Pulse Resp BP Pulse Ox 36.3 C 65 18 157/96 H 95 03/04/18 15:25 03/04/18 16:00 03/04/18 16:00 03/04/18 16:00 03/04/18 16:00 Constitutional: no apparent distress, appears nourished, not in pain Eyes: PERRL, anicteric sclera, EOMI Ears, Nose, Mouth, Throat: moist mucous membranes, hearing normal, ears appear normal, no oral mucosal ulcers Cardiovascular: regular rate and rhythym, no murmur, rub, or gallop, No edema Peripheral Pulses: 2+: dorsalis-pedis (R) (Radial 2+), dorsalis-pedis (L) ( Radial 2+) Respiratory: no respiratory distress, no rales or rhonchi, clear to auscultation Gastrointestinal: normoactive bowel sounds, soft, non-tender abdomen, no palpable masses Genitourinary: no bladder fullness, no bladder tenderness Skin: warm, normal color, no rashes or abrasions, no fluctuance, no induration, No mottled Musculoskeletal: full muscle strength, no muscle tenderness, normal joint ROM, no joint effusions Neurologic: AAOx3, sensation intact bilaterally, CN II-XII Intact Psychiatric: interacting appropriately, not anxious, not encephalopathic, thought process linear Lymph, Heme, Immunologic: no cervical LAD, no supraclavicular LAD Lab Data & Imaging Review 03/04/18 15:44 03/04/18 15:44 WBC 7.19 10^3/uL (3.80-9.50) 03/04/18 15:44 RBC 4.97 10^6/uL (4.40-6.38) 03/04/18 15:44 Hgb 15.4 g/dL (13.7-17.5) 03/04/18 15:44 Hct 43.6 % (40.0-51.0) 03/04/18 15:44 MCV 87.7 fL (81.5-99.8) 03/04/18 15:44 MCH 31.0 pg (27.9-34.1) 03/04/18 15:44 MCHC 35.3 g/dL (32.4-36.7) 03/04/18 15:44 RDW 12.7 % (11.5-15.2) 03/04/18 15:44 Plt Count 142 10^3/uL (150-400) L 03/04/18 15:44 MPV 11.2 fL (8.7-11.7) 03/04/18 15:44 Neut % (Auto) 88.3 % (39.3-74.2) H 03/04/18 15:44 Lymph % (Auto) 9.6 % (15.0-45.0) L 03/04/18 15:44 [place] % (Auto) 1.5 % (4.5-13.0) L 03/04/18 15:44 Eos % (Auto) 0.0 % (0.6-7.6) L 03/04/18 15:44 Baso % (Auto) 0.3 % (0.3-1.7) 03/04/18 15:44 Nucleat RBC Rel Count 0.0 % (0.0-0.2) 03/04/18 15:44 Absolute Neuts (auto) 6.35 10^3/uL (1.70-6.50) 03/04/18 15:44 Absolute Lymphs (auto) 0.69 10^3/uL (1.00-3.00) L 03/04/18 15:44 Absolute Monos (auto) 0.11 10^3/uL (0.30-0.80) L 03/04/18 15:44 Absolute Eos (auto) 0.00 10^3/uL (0.03-0.40) L 03/04/18 15:44 Absolute Basos (auto) 0.02 10^3/uL (0.02-0.10) 03/04/18 15:44 Absolute Nucleated RBC 0.00 10^3/uL (0-0.01) 03/04/18 15:44 Immature Gran % 0.3 % (0.0-1.1) 03/04/18 15:44 Immature Gran # 0.02 10^3/uL (0.00-0.10) 03/04/18 15:44 Sodium 141 mEq/L (135-145) 03/04/18 15:44 Potassium 4.5 mEq/L (3.5-5.2) 03/04/18 15:44 Chloride 105 mEq/L (97-110) 03/04/18 15:44 Carbon Dioxide 29 mEq/l (22-31) 03/04/18 15:44 Anion Gap 7 mEq/L (6-14) 03/04/18 15:44 BUN 15 mg/dL (7-23) 03/04/18 15:44 Creatinine 0.9 mg/dL (0.7-1.3) 03/04/18 15:44 Estimated GFR > 60 03/04/18 15:44 Glucose 124 mg/dL (70-100) H 03/04/18 15:44 Calcium 9.3 mg/dL (8.5-10.4) 03/04/18 15:44 Total Bilirubin 0.6 mg/dL (0.1-1.4) 03/04/18 15:44 Conjugated Bilirubin 0.2 mg/dL (0.0-0.5) 03/04/18 15:44 Unconjugated Bilirubin 0.4 mg/dL (0.0-1.1) 03/04/18 15:44 AST 28 IU/L (17-59) 03/04/18 15:44 ALT 34 IU/L (21-72) 03/04/18 15:44 Alkaline Phosphatase 48 IU/L (38-126) 03/04/18 15:44 POC Troponin I 0.00 ng/mL (0.00-0.08) 03/04/18 15:52 Total Protein 6.9 g/dL (6.3-8.2) 03/04/18 15:44 Albumin 4.5 g/dL (3.5-5.0) 03/04/18 15:44 Lipase 79 IU/L (23-300) 03/04/18 15:44 Assessment & Plan Plan: 1. Chest pain: strong family history of heart disease as well as gender and age of pt indicate a correlation of CAD -Consult cards; Kacie POOLE, from [facility], was at bedside with pt discussing options. Pt was given the option of stress test vs cath; pt prefers cath. Kacie discussed with pt's case, will cath tomorrow -Cardiac diet, NPO at midnight -Cont tele monitoring -Cycle trops; first trop negative -Cycle EKGs -Lipid panel tomorrow -Nitroglycerin PRN -He reports muscle cramping and aches while on atorvastatin ~ 15 years ago 2. Shortness of breath: possibly symptomatic undiagnosed, untreated CAD -See above -May continue albuterol PRN 3. Hypertension: reports his BP normally is 140/100 or below -Amlodipine PO one time Diet: Cardiac, NPO at midnight tonight VTE ppx: SCDs Code: Full Dispo: Admit to obs
[2018-03-04] MEDS ORDERED: ACETAMINOPHEN 325 MG TAB PO PRN (18:47)
[2018-03-04] MEDS ORDERED: ONDANSETRON DISINTEGRATING 4 MG TAB PO PRN (18:47)
[2018-03-04] MEDS ORDERED: ONDANSETRON 4 MG/2 ML VIAL IVP PRN (18:47)
[2018-03-04] MEDS ORDERED: NITROGLYCERIN 0.4 MG BTL SL PRN (18:57)
[2018-03-04] MEDS ORDERED: TEMAZEPAM 15 MG CAP PO PRN (18:57)
[2018-03-04] MEDS ORDERED: ALBUTEROL 60 PUFFS/8 GM MDI IH PRN (19:02)
[2018-03-04] MEDS ORDERED: amLODIPine BESYLATE 5 MG TAB PO ONE (19:15)
--- NOTE | 2018-03-04 19:30 | HOSPPROG ---
Hospitalist Progress Note Assessment/Plan: I have seen and examined the patie. Agree w plan as outlined. angiogram in AM Objective: Vital Signs Temp Pulse Resp BP Pulse Ox 36.2 C 77 17 177/103 H 94 03/04/18 18:37 03/04/18 18:37 03/04/18 18:37 03/04/18 18:37 03/04/18 18:37 ICD10 Worksheet Patient Problems: Problems Problem Status Onset Chest pain Acute Shortness of breath Acute Abdominal pain of multiple sites Acute Pancreatitis Acute
--- NOTE | 2018-03-04 22:40 | CPEKG ---
Test Reason : OPEN Blood Pressure : / mmHG Vent. Rate : 060 BPM Atrial Rate : 060 BPM P-R Int : 240 ms QRS Dur : 107 ms QT Int : 419 ms P-R-T Axes : 074 021 046 degrees QTc Int : 419 ms Sinus rhythm Prolonged MN interval Left atrial enlargement Left ventricular hypertrophy Lateral infarct, acute (LAD) Anterior infarct, age indeterminate Confirmed by Prince Gomez ([id number]) on 03/04/2018 10:39:53 PM Referred By: Confirmed By:Prince Gomez
[2018-03-05 04:28] LABS: PLATELET COUNT 129 10^3/uL (150-400)
[2018-03-05 04:33] LABS: INR 1.15 (0.83-1.16); PROTIME(PATIENT) 14.9 SEC (12.0-15.0)
[2018-03-05] MEDS ORDERED: DIAZEPAM 5 MG TAB PO ONE ×2 (06:00→09:00)
[2018-03-05] MEDS ORDERED: FAMOTIDINE 20 MG TAB PO ONE ×2 (06:00→09:00)
[2018-03-05] MEDS ORDERED: diphenhydrAMINE 25 MG CAP PO ONE ×2 (06:00→09:00)
[2018-03-05] MEDS ORDERED: ASPIRIN EC 325 MG TAB PO ONE ×2 (06:00→09:00)
--- NOTE | 2018-03-05 06:47 | GCON ---
CARDIAC CONSULTATION DATE OF CONSULTATION: 03/04/2018 CHIEF COMPLAINT: Chest pain and shortness of breath. HISTORY OF PRESENT ILLNESS: The patient is a 68-year-old male with a history of calcified disease wi thin his LAD by CT, who presented to his primary care physician's office with complaints of shortness of breath and chest discomfort. His symptoms began a few months ago and have become more frequent a nd are lasting longer. Will now have episodes lasting up to 15-20 minutes. It typically begins with shortness of breath which is followed by chest pressure and on occasion tunnel vision. He denies an y true syncope associated with this. He is a very active kofi and goes on routine rides of up to 5 ho urs. He has noted some exercise intolerance as well as symptoms with exercise. He has also noted sy mptoms at rest. His risk factors for coronary artery disease include a family history of premature c oronary artery disease. His brother had 3 vessel CABG in his 40s. His mother and father also have k nown coronary disease, but the details are unknown. His other risk factors include hyperlipidemia. He denies any history of hypertension, but he is hypertensive in the hospital today with a blood pres sure of 195/110. He also has a history of recurrent pancreatitis. He had a pancreatic stent placed earlier today. He states that his chest discomfort is different than his typical pancreatic pain. PAST MEDICAL HISTORY: Coronary artery disease with known disease located within the LAD by CT. Recu rrent pancreatitis. COPD. PAST SURGICAL HISTORY: Cholecystectomy and pancreatic stent placement. FAMILY HISTORY: His brother had 3 vessel CABG in his 40s. He believes his mother and father also ragland d coronary disease, but the details are unknown. SOCIAL HISTORY: He is currently retired. He denies any excessive tobacco or alcohol use. MEDICATIONS: Albuterol p.r.n. ALLERGIES: He is intolerant to statins secondary to myalgias. REVIEW OF SYSTEMS: A 12 point review of systems is negative except for what is stated in the H and P . PHYSICAL EXAMINATION: GENERAL: The patient appears in no acute distress. VITALS: Blood pressure 1 77/103. Heart rate 77. Oxygen saturation of 94% on room air. Afebrile. HEENT: Within normal limi ts. NECK: No carotid bruits or JVD present. LUNGS: Clear to auscultation. No wheezes, rhonchi, o r crackles auscultated. CARDIAC: Regular rate and rhythm without any murmurs, rubs, or gallops appr eciated. CHEST WALL: Nontender to palpation. ABDOMEN: Soft, nontender, nondistended. No organome juan present. EXTREMITIES: Palpable pulses bilaterally without edema. NEUROLOGIC: Nonfocal. PSYC HIATRIC: Mood and affect appropriate. SKIN: No obvious rashes or ecchymosis identified. LABORATORY DATA: Troponin negative x1. Lipase 79. BMP within normal limits. CBC within normal hernández its except for platelet count is low at 142. DIAGNOSTIC STUDIES: EKG reveals normal sinus rhythm with T wave inversion in the anterior septal and anterior leads. Chest x-ray is negative for acute cardiopulmonary disease. ASSESSMENT: The patient is a 68-year-old male with a history of coronary artery disease, who present s with chest pain and shortness of breath. PLAN: The patient has no coronary artery disease on the basis of a CT scan. He had significant plaq ue located within his LAD per patient. He now presents with progressive chest pressure and shortness of breath. He also has multiple risk factors for coronary disease as well as an EKG concerning for ischemia. Treatment options including nuclear stress test versus angiogram were discussed with the p atient today. He would prefer to proceed with an angiogram, which I think is appropriate. The risks , benefits, and alternatives of the procedure have been discussed with him and he would like to proce ed. He will be scheduled for a heart catheterization tomorrow morning with Dr. Patrick Holder. He is hypertensive with a blood pressure of 177/103. He has been hypertensive since admission to the hospital. Will give one dose of Norvasc 5 mg. /[id number]/MODL
--- NOTE | 2018-03-05 09:50 | PDHPUP ---
History & Physical Update H&P update statement: This history and physical update is based on an assessment of the patient which was completed after admission or registration (within 24 hours), but prior to the surgery/procedure. Dictated consultation by ZULEMA Bradley was reviewed. Patient seen and examined. H&P update: H&P reviewed & patient examined, no change in patient's condition since H&P completed (Yeison test on right wrist normal at less than 5 sec.)
[2018-03-05] MEDS ORDERED: VERAPAMIL 5 MG/2 ML VIAL ONE (12:04)
[2018-03-05] MEDS ORDERED: HEPARIN 10,000 UNIT/10 ML MDV (1,000 UNIT/ML) ONE (12:04)
[2018-03-05] MEDS ORDERED: fentaNYL 100 MCG/2 ML INJ ONE (12:04)
[2018-03-05] MEDS ORDERED: IOPAMIDOL (ISOVUE-370) 150 ML BTL IV ONE (12:04)
[2018-03-05] MEDS ORDERED: MIDAZOLAM 2 MG/2 ML VIAL ONE (12:04)
[2018-03-05] MEDS ORDERED: LIDOCAINE 1% 300 MG/30 ML SDV ONE (12:04)
[2018-03-05] MEDS ORDERED: HYDROCODONE/APAP 5/325 TAB PO PRN (13:20)
[2018-03-05] MEDS ORDERED: OXYCODONE/APAP 5/325 TAB PO PRN (13:20)
[2018-03-05] MEDS ORDERED: ATROPINE SULFATE 1 MG/10 ML SYR IVP PRN (13:20)
--- NOTE | 2018-03-05 13:23 | PDPROPOC ---
Sedation Plan of Care Sedation Plan of Care: vital signs stable, mental status noted, patient educated of risks, benefits, alternatives, patient can tolerate sedation ASA Classification: ASA 1 Planned drugs: fentanyl, midazolam Mallampati Score: Class 2 Mallampati Reference Image: Patient passed 3-3-2 rule?: Yes
--- NOTE | 2018-03-05 13:27 | PDDXCAT ---
Diagnostic Cath Note - . Date: 03/05/18 Charge Manager: Gallo Indication: other (Chest discomfort, lightheadedness, abnormal ECG, and coronary atherosclerosis by prior CT.) - Procedure Access: right wrist Procedure: left heart catheterization, coronary angiography, left ventriculogram - Materials Left Heart Cath size: 5F Left Heart Cath materials: other (TIG and Pigtail) - Findings-Left Heart Catheterization LM: Normal. LAD: Mid-LAD 20-30%; otherwise, minimal irregularities. LCX: Dominant; minimal irregularities. RCA: Non-dominant; normal. EDP: 17 mmHg LVEF: 60% Wall motion: Normal. Complications: None. Estimated blood loss: <50ml Closure method: TR Band Assessment: 1) Mild, [id number]-klkazcze coronary atherosclerosis. 2) Normal LV systolic function. Plan: - Stable for discharge. - Will ask office staff at [facility] to contact him and arrange for an outpatient echo and followup appointment. - Will consider an event monitor and discuss PCSK9 for cholesterol reduction. Patient Problems: Problems Problem Status Onset Chest pain Acute Shortness of breath Acute Abdominal pain of multiple sites Acute Pancreatitis Acute
--- NOTE | 2018-03-06 03:21 | GDS ---
CONSULTATIONS: Cardiology. ALL PROCEDURES: Cardiac catheterization by radial approach by Dr. Holder showing very mild non-geraldine w limiting coronary artery disease. ALL DIAGNOSES: 1. Chest pain. 2. Hyperlipidemia. 3. 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 HOSPITAL COURSE: A 68-year-old man presented after having a pancreatic stent changed with right-side d chest pain. He was taken to the blender laborer, which was negative. Pulmonary embolism is considered, b ut very unlikely given his lack of tachycardia (he is actually bradycardic) as well as lack of hypoxi a. His LDL cholesterol was checked, and is found to be 129. He is stable for discharge without any change in medications. Dr. Holder would like to follow up with him as an outpatient to consider as pirin, potential statin therapy, outpatient echocardiogram, and possible event monitor. He has been given information to follow up with [facility]. He is otherwise discharged in stable condition. I have discussed all this with him, and he understands. He will follow up with Dr. Alexis for ongoing management of his pancreatitis. /[id number]/MODL
[2018-03-06 07:58] VITALS: BP 148/90
--- NOTE | 2018-03-06 08:23 | HOSPPROG ---
Hospitalist Progress Note Assessment/Plan: Patient stayed an extra night due to minor bleeding from radial cath site and what would have been a late discharge. No other changes from discharge summary yesterday. Objective: Vital Signs Temp Pulse Resp BP Pulse Ox 36.9 C 62 18 148/90 H 97 03/06/18 07:55 03/06/18 07:55 03/06/18 07:55 03/06/18 07:55 03/06/18 07:55 Laboratory Results 03/05/18 03:56 03/05/18 03:56 03/05/18 03/06/18 03/07/18 05:59 05:59 05:59 Intake Total 200 840 Balance 200 840 PT 14.9 SEC (12.0-15.0) 03/05/18 03:56 INR 1.15 (0.83-1.16) 03/05/18 03:56 ICD10 Worksheet Patient Problems: Problems Problem Status Onset Abdominal pain of multiple sites Acute Pancreatitis Acute Chest pain Acute Shortness of breath Acute
== END 2018-03-06 08:19 | disposition home or self-care (01) ==
LOC: F2W 18:25
PROVIDERS: ADMIT Internal Medicine; ATTEND Student in an Organized Health Care Education/Training Program
DX: R07.89 Other chest pain (principal); R06.02 Shortness of breath; K86.1 Other chronic pancreatitis; I25.10 Atherosclerotic heart disease of native coronary artery without angina pectoris; E78.5 Hyperlipidemia, unspecified; R03.1 Nonspecific low blood-pressure reading; R00.1 Bradycardia, unspecified; Z82.49 Family history of ischemic heart disease and other diseases of the circulatory system
CPT/HCPCS: 71046; 93005; 93458; 99285; C1769; G0378; J1644; J2250; J3010; Q9967; 84402-90; 84484-PO

== ENCOUNTER → 2018-03-30 | Outpatient (CLI) | payer OTHER | LOC: BHFA 15:30 | PROVIDERS: ATTEND Internal Medicine Cardiovascular Disease | DX: R06.02 Shortness of breath (principal) ==

== ENCOUNTER 2018-09-20 12:24 | Emergency (ER) | payer OTHER | END 2018-09-20 17:11 | disposition home or self-care (01) ==